=== PATIENT | female | born 1950 | race Caucasian/White ===

== ENCOUNTER → 2016-03-11 | Outpatient (CLI) | payer OTHER, MEDICARE ==
--- NOTE | 2016-03-11 18:00 | CT ---
CT Chest Without Contrast dated March 11, 2016 Indication: Follow up micronodules on previous EBCT chest CT. Technique: 1.5 mm thick helically acquired slices were obtained through the chest utilizing low-dose algorithm. Dose reduction techniques were utilized. Comparison: EBCT HeartScan from [facility] dated August 21, 2015. Findings: The focal groundglass opacity and consolidation in the medial segment right middle lobe has completely resolved. Several small foci of central acinar micronodules with tree-in-bud pattern scat tered throughout the right and left lung have otherwise not significantly changed and are likely brianna festation of bronchiolitis. Minimal bronchial mucous plugging in the peripheral aspect of the right m iddle lobe and lingula is new. Calcified right hilar lymph nodes and calcified granuloma in the poste rior segment right upper lobe are unchanged. No broncholith or central mucous plugging. The heart size is normal. No pericardial or pleural effusion. No enlarged lymph node or mass througho ut the axilla, mediastinum or pulmonary janelle. Imaged portion of the upper abdomen is negative. No bon e lesions. The thoracic aorta is normal in caliber with minimal calcified plaque. Impression: 1. 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 2. Resolved groundglass consolidation medial segment right middle lobe. 3. No lymphadenopathy or mass.
== END ==
LOC: FIMAGING 10:30
PROVIDERS: ATTEND Internal Medicine
DX: R91.8 Other nonspecific abnormal finding of lung field (principal)

== ENCOUNTER → 2016-04-23 | Outpatient (CLI) | payer OTHER, MEDICARE | LOC: BHFA 11:00 | PROVIDERS: ATTEND Internal Medicine Cardiovascular Disease | DX: R06.00 Dyspnea, unspecified (principal) ==

== ENCOUNTER → 2017-08-18 | Outpatient (CLI) | payer OTHER, MEDICARE | LOC: FIMAGING 10:07 | PROVIDERS: ATTEND Internal Medicine | DX: Z12.31 Encounter for screening mammogram for malignant neoplasm of breast (principal) ==

== ENCOUNTER → 2017-09-09 | Outpatient (CLI) | payer OTHER, MEDICARE | LOC: FIMAGING 13:18 | PROVIDERS: ATTEND Internal Medicine | DX: Z13.820 Encounter for screening for osteoporosis (principal); M85.89 Other specified disorders of bone density and structure, multiple sites ==

== ENCOUNTER → 2017-10-27 | Outpatient (CLI) | payer OTHER, MEDICARE | LOC: FIMAGING 11:32 | PROVIDERS: ATTEND Internal Medicine | DX: M79.605 Pain in left leg (principal); R22.42 Localized swelling, mass and lump, left lower limb ==